=== PATIENT | male | born 1955 | race Caucasian/White ===

== ENCOUNTER 2023-06-13 11:27 | Inpatient (IN) | payer MEDICARE ==
[2023-06-13] MEDS: hydrALAZINE 20 MG/ML SDV IVPUSH ONE (12:17)
[2023-06-13] MEDS: hydrALAZINE 20 MG/ML SDV ONE (12:24)
[2023-06-13 12:36] LABS: HEMATOCRIT 40.6 % (40.0-54.0); HEMOGLOBIN 14.1 g/dL (13.0-18.0); MEAN CORPUSCULAR HEMOGLOBIN 31.3 pg (27.0-32.0); MEAN CORPUSCULAR HGB CONC 34.7 g/dL (31.0-35.0); MEAN PLATELET VOLUME 9.7 fL (6.0-10.0); RED BLOOD CELL COUNT 4.51 M/uL (4.50-6.50); RED CELL DISTRIBUTION WIDTH 12.2 % (11.0-16.0); WHITE BLOOD CELL COUNT,WBC 7.1 K/uL (4.0-11.0)
[2023-06-13 12:52] LABS: HEMOGLOBIN A1C 5.9 % (< 5.7)
[2023-06-13 12:55] LABS: ANION GAP 6.9 mmol/L (5.0-15.0); BUN/CREATININE RATIO 12.1 (6-25); CALCIUM 8.7 mg/dL (8.5-10.1); CARBON DIOXIDE,CO2 29.8 mmol/L (21.0-32.0); CREATININE 0.99 mg/dL (0.70-1.30); EST CRCL DRUG DOSING (CG) 65.84 mL/min; MAGNESIUM 1.9 mg/dL (1.8-2.4); PHOSPHORUS 3.4 mg/dL (2.5-4.9); POTASSIUM,K 3.7 mmol/L (3.5-5.1); TROPONIN I HIGH SENSITIVITY 14.8 pg/ml (<=60.4)
[2023-06-13] MEDS: Labetalol 100 MG/20 ML MDV IVPUSH ONE (13:44)
[2023-06-13] MEDS: Labetalol 100 MG/20 ML MDV ONE (15:46)
[2023-06-13] MEDS: hydrALAZINE 10 MG Tab PO SCH (18:37)
[2023-06-13] MEDS: Lisinopril 10 MG Tab PO ONE (19:17)
[2023-06-14] MEDS: hydrALAZINE 20 MG/ML SDV IVPUSH ONE ×2 (00:32→21:27)
[2023-06-14] MEDS: hydrALAZINE 20 MG/ML SDV ONE (00:32)
[2023-06-14] MEDS: Lisinopril 20 MG Tab PO SCH (07:33)
[2023-06-14] MEDS: Hydrochlorothiazide 12.5 MG Cap PO SCH (10:34)
[2023-06-14] MEDS: amLODIPine 2.5 MG Tab PO ONE ×2 (10:34→18:26)
[2023-06-14] MEDS: hydrALAZINE 20 MG/ML SDV IVPUSH SCH (18:25)
[2023-06-15] MEDS: Sodium Chloride 0.9% 10 ML Syringe FLUSH PRN (07:18)
[2023-06-15] MEDS: Labetalol 100 MG/20 ML MDV IVPUSH ONE (07:20)
[2023-06-15 12:02] VITALS: BP 170/82; PULSE 68
== END 2023-06-15 09:50 | disposition home or self-care (01) | DRG 305 ==
LOC: LB.ED 11:27 → LB.MS 14:30
PROVIDERS: ADMIT Surgery; ATTEND Surgery
DX: I16.1 Hypertensive emergency (principal); I71.20 Thoracic aortic aneurysm, without rupture, unspecified; F17.210 Nicotine dependence, cigarettes, uncomplicated; I71.40 Abdominal aortic aneurysm, without rupture, unspecified; I10 Essential (primary) hypertension; E66.9 Obesity, unspecified; F17.290 Nicotine dependence, other tobacco product, uncomplicated; F10.90 Alcohol use, unspecified, uncomplicated; Z68.31 Body mass index [BMI] 31.0-31.9, adult; Z79.899 Other long term (current) drug therapy
CPT/HCPCS: 36415; 71045; 80048; 80061; 83036; 83735; 83880; 84100; 84484; 85027; 93005; 93010; 96374; 96375; 99222; 99239; 99284-25; A9270-GY; J0360; J1921; J3490